=== PATIENT | male | born 1945 | race Caucasian/White ===

== ENCOUNTER 2016-09-09 03:03 | Day surgery (SDC) | payer OTHER ==
[~2016-09-09] VITALS: Ht 170.2 cm; Wt 70.3 kg
[2016-09-09] VITALS (14 sets, daily range): BP systolic 104–133; BP diastolic 59–74; PULSE 46–52; RESP 13–16; O2SAT 95–96
[~2016-09-09 03:03] MED LIST: ASPI325T32 PO; DORZ10DR18 BOTH_EYES; IBUP-1827 PO; LATA2.5D6 AFFECT_EYE; SIMV20TA4 PO; [UNRECOGNIZED DRUG - CODE] PO
[2016-09-09] MEDS ORDERED: 0.9% Sodium Chloride 1,000 ML IV SCH (07:25)
[2016-09-09 07:38] LABS: BASOPHILS % (AUTO) 0.2 % (0-3); EOSINOPHILS % (AUTO) 3.9 % (0-5); Mean Corpuscular Hemoglobin 31.2 pg (27.0-35.0); Mean Corpuscular Volume 93.7 fL (81-100); NEUTROPHILS % (AUTO) 46.7 % (40-74); Platelet Count 156 bil/L (150-400)
[2016-09-09 07:55] LABS: INR 1.01 ratio
[2016-09-09] MEDS ORDERED: IBUP200C PO (08:13)
[2016-09-09] MEDS ORDERED: ASPI-973 PO (08:13)
[2016-09-09] MEDS ORDERED: [UNRECOGNIZED DRUG - CODE] PO (08:13)
[2016-09-09] MEDS ORDERED: TURM500C7 PO (08:13)
--- NOTE | 2016-09-09 08:30 | NUR ---
Admitted for an SVT ablation today by Dr Roque. Patient is here with his , "Glenis" today, and both patient and understand plan of care for the day. Admits in a NSB rates in the 40'-50's.
[2016-09-09] MEDS ORDERED: Heparin 5,000 Units/500 mL NS Premix IV ONE (08:53)
[2016-09-09] MEDS ORDERED: fentaNYL-PF 50 mCg/mL 2 mL Inj ONE (09:36)
[2016-09-09] MEDS ORDERED: Ondansetron 2 mg/mL 2 mL Inj IVPUSH PRN (11:15)
[2016-09-09] MEDS ORDERED: HYDROcodone-APAP 5-325 mg Tablet PO PRN (11:15)
--- NOTE | 2016-09-09 11:56 | PROCED ---
[address] [address] PROCEDURE NOTE PATIENT: GABRIEL MAYNARD : 1945 MR#: [id number] ADMIT: 09/09/2016 JOB ID: [id number] DATE OF SERVICE: 09/09/2016 PREOPERATIVE DIAGNOSIS(ES): Supraventricular tachycardia. POSTOPERATIVE DIAGNOSIS(ES): Atrioventricular node re-entry tachycardia. PROCEDURES PERFORMED: 1. Comprehensive electrophysiology study with left atrial pacing recording via the coronary sinus catheter. 2. Three-dimensional electroanatomic mapping using the CARTO 3 system. 3. Slow pathway modification (AV node re-entry tachycardia ablation; supraventricular tachycardia atrial ablation). 4. Fluoroscopy. SURGEON: Jay Roque MD, electrophysiology attending ASSISTANTS: 1. Soraya Shin. 2. Bentley Villarreal. ANESTHESIA: Bolus dosing of Versed and fentanyl were utilized for an appropriate level of sedation. INDICATION: The patient is a pleasant 70-year-old man with a structurally normal heart and recurrent highly symptomatic drug refractory SVT. After discussion of the risks and benefits of catheter based mapping and ablation, he opted to proceed. PROCEDURAL DESCRIPTION: Following informed consent, the patient was taken to the EP laboratory in a fasting nonsedated state, where he was prepped in the usual sterile fashion. The bilateral groins were infiltrated with 1% lidocaine. Then, using modified Seldinger technique, two 6-Icelandic sheaths were inserted into the left femoral vein and a 7 and an 8-Icelandic sheath were inserted into the right femoral vein. Then, under fluoroscopic guidance, a deflectable decapolar catheter was advanced to the coronary sinus with most proximal bipole at the os of the sinus. A [place] quadripolar catheter was advanced to the RV apex and a CRD 2 quadripolar catheter was advanced to the His position. A comprehensive electrophysiology study was undertaken with right atrial pacing and recording, right ventricular pacing, and His bundle recording, and left atrial pacing and recording via the coronary sinus catheter. The patient's clinical tachycardia was easily inducible with catheter manipulation and extra stimulus pacing from the atria. This was a regular narrow tachycardia at a cycle length of 545 msec, VA time of 0 msec induced with an antegrade jump. This was consistent with AV node re-entry tachycardia. Attempts at RV apical entrainment consistently terminated the tachycardia. We, therefore, prepared for slow pathway modification. An F curve non irrigated 4 mm ablation catheter was brought into the field and used to create a three-dimensional electroanatomic map of the right atrium, tricuspid anulus and triangle of López. Ablation lesions at 50 krause were placed at the base of the triangle of López in the region of the slow pathway. Ultimately two of these lesions led to multiple conducted junctional beats. Aggressive induction maneuvers were then undertaken after ablation without induction of tachycardia. The patient did have an antegrade jump without echoes and without tachycardia for the waiting period. Ultimately all catheters and sheaths were removed. Manual pressure was held for hemostasis. The patient was transferred t to the [facility] for monitoring, bedrest and discharge. COMPLICATIONS: None. ESTIMATED BLOOD LOSS: Negligible. FINDINGS: 1. Baseline rhythm is sinus with an RR interval of 1471 msec, ME 130 msec, QRS 90 msec, QT 404 msec. 2. Intracardiac intervals: AH interval 80 msec, HV 47 msec. Post ablation those intervals are 83 and 49 msec respectively. 3. Retrograde conduction: Concentric atrial activation VA Wenckebach 470 msec. 4. Antegrade conduction. An antegrade jump was seen with induction of the patient's clinical tachycardia. 5. AV node re-entry tachycardia as described above status post slow pathway modification without inducibility post ablation. Post ablation, he does have an antegrade jump without echoes or tachycardia. IMPRESSION: Successful slow pathway modification for atrioventricular node re-entry tachycardia. PLAN: 1. Bed rest x4 hours. 2. Continue daily aspirin. 3. Discontinue calcium channel shaw. 4. Follow up with or Jorge Husain in the clinic in 3-4 weeks. ATTENDING STATEMENT: Jay Roque MD, electrophysiology attending, was present for and supervised/performed all aspects of this procedure.
--- NOTE | 2016-09-09 12:00 | NUR ---
Returned to [facility] following a successful SVT ablation today by Dr Roque. Femoral Venous access sites are soft and non-tender - BR for 4 hours and D/C home is plan of care. NSB rates in the 40's - 12 lead completed.
--- NOTE | 2016-09-09 16:00 | NUR ---
D/C home following a 4 hour recovery. Noted > ache in upper back after 4 hours of BR - discomfort abated following getting up and walked to and around [facility] prior to D/C home today. Rhythm is NSB rates in the 40's. Follow up scheduled for 10/06/16. Pt and , "Glenis" understand home care instructions. Both femoral access sites are soft dry and non-tender at time of discharge from [facility].
== END 2016-09-09 23:59 | disposition home or self-care (01) ==
LOC: SOUO 03:03
PROVIDERS: ATTEND Internal Medicine Cardiovascular Disease
DX: I47.1 Supraventricular tachycardia (principal); Z79.82 Long term (current) use of aspirin; K21.9 Gastro-esophageal reflux disease without esophagitis; E78.5 Hyperlipidemia, unspecified
CPT/HCPCS: 36415; 80048; 85025; 85610; 93005; 93613; 93621; 93653; 99152; C1730; C1732; J0131; J1644; J2250; J3010